=== PATIENT | male | born 1995 | race African-American/Black ===

== ENCOUNTER → 2018-04-30 | Day surgery (SDC) | payer OTHER ==
[~2018-04-30] VITALS: Ht 175.3 cm; Wt 68.0 kg
[~2018-04-30] MED LIST: BACITRACIN/POLYMYXIN B OPHTH OINTMENT 3.5GM TUBE. ONE; DEXAMETHASONE SOD PHOS 20 MG/5 ML VIAL. ONE; HYDROmorphone 2 MG/ML VIAL IV PRN; IV RINGERS,LACTATED 1000ML 1,000 ML IV SCH; KETOROLAC 30 MG/ML INJ FOR OR. INJ ONE; LIDOCAINE 1% 20 ML VIAL. ONE; LIDOCAINE 1% PF 2 ML VIAL. ID PRN; LIDOCAINE 2% PF 5 ML VIAL. ONE; MIDAZOLAM HCL/PF 2 MG/2 ML VIAL. ONE; MORPHINE SULFATE 4 MG/ML VIAL. IV PRN; ONDANSETRON PF 4 MG/2 ML VIAL. IV PRN; ONDANSETRON PF 4 MG/2 ML VIAL. ONE; PROCHLORPERAZINE 10 MG/2 ML VIAL. IV PRN; PROPOFOL 20 ML IV ONE; fentaNYL PF VIAL 100 MCG/2 ML VIAL IV PRN; fentaNYL PF VIAL 100 MCG/2 ML VIAL ONE; traMADol 50 MG TABLET ONE; traMADol 50 MG TABLET PO ONE
--- NOTE | 2018-04-30 13:04 | OP ---
DATE OF SURGERY: 04/30/2018 PREOPERATIVE DIAGNOSIS: Penile skin bridge. POSTOPERATIVE DIAGNOSIS: Penile skin bridge. PROCEDURE: Holmium laser excision of skin bridge. CONDITION: Stable. COMPLICATIONS: None. ESTIMATED BLOOD LOSS: 1 mL. SPECIMEN: None. FINDINGS: Skin bridge about 2 cm wide at 1 o'clock position in the dorsum. No penile warts were noted. DESCRIPTION OF DETAIL: The patient was taken back to the procedure room and placed in supine position per the protocol. He was prepped and draped in usual sterile fashion in supine position. A careful exam visualized no associated penile warts. Urethral meatus was within normal. A skin bridge was grasped with two large hemostat and both edges were excised with a holmium laser for excellent hemostasis. The foreskin gap was reapproximated with 4-0 Monocryl. For better cosmesis, I put a [id number] on the gap noted at the glans. Excellent hemostasis was obtained. Vaseline gauze was used with Kerlix dressing and Coban. The patient was awakened and taken to PACU in stable condition. Of note, he also had dorsal penile block done at 11 o'clock and 1 o'clock at the base of the penis. ROCIO JONES MD DR: VALENTINE/cody JOB#: [id number] / [id number]
[2018-04-30 13:45] VITALS: BP 144/86
--- NOTE | 2018-04-30 17:51 | PDOC4 ---
OPERATIVE NOTE Date: Date: Apr 30, 2018 Pre-Op Diagnosis: penis adhesion, skin ridge Post-Op Diagnosis: same Procedure Performed: Holmium excision of skin bridge. Surgeon: Anesthesia Type: GA Blood Loss: 0ML Specimans Obtained: NONE Findings: skin bridge Complications: none evident ROCIO JONES MD Apr 30, 2018 17:51
== END | disposition home or self-care (01) ==
LOC: SURG 08:20
PROVIDERS: ATTEND Urology
DX: N47.5 Adhesions of prepuce and glans penis (principal); Z82.49 Family history of ischemic heart disease and other diseases of the circulatory system
CPT/HCPCS: 54162; A7015; J0690; J1100; J1885; J2001; J2250; J2405; J2704; J3010; J7120; J0780; J1170; A4461